=== PATIENT | male | born 1980 | race Two or more races ===

== ENCOUNTER 2021-06-30 13:01 | Inpatient (IN) | payer MEDICAID, OTHER ==
[~2021-06-30] VITALS: Ht 180.3 cm; Wt 103.9 kg
[~2021-06-30 13:01] MED LIST: NOCURR; OLAN7.5T22 PO
[2021-06-30] MEDS ORDERED: OLANZapine 5 MG RAPDIS TABLET PO PRN (15:00)
[2021-06-30] MEDS ORDERED: LORazepam 2 MG TABLET PO PRN (15:00)
[2021-06-30 15:01] LABS: BASOPHILS % (AUTO) 0.5 % (0.0-2.0); EOSINOPHILS % (AUTO) 1.3 % (1.0-6.0); HEMOGLOBIN 15.3 g/dL (13.5-17.5); LYMPHOCYTES % (AUTO) 24.6 % (22.0-44.0); MEAN CORPUSCULAR HEMOGLOBIN 31.5 pg (26.0-34.0); MEAN CORPUSCULAR HGB CONC 35.7 G/dL (31.0-37.0); MEAN CORPUSCULAR VOLUME 88 fL (80-100); MONOCYTES # (AUTO) 0.6 K/uL (0.1-1.0); NEUTROPHILS # (AUTO) 5.3 K/uL (1.8-7.7); NEUTROPHILS % (AUTO) 65.6 % (40.0-70.0); PLATELET COUNT (AUTO) 233 K/uL (150-450); RED BLOOD CELL COUNT(AUTO) 4.86 MIL/uL (4.50-5.90); RED CELL DISTRIBUTION WIDTH 13.3 % (11.5-14.5)
[2021-06-30 15:10] LABS: ANION GAP 11 mmol/L (8-16); CARBON DIOXIDE 28 mmol/L (22-29); CHLORIDE 103 mmol/L (98-107); CREATININE 0.79 mg/dL (0.60-1.30); GLOMERULAR FILTR. RATE CALC > 60 mL/min (>60); GLUCOSE,RANDOM 98 mg/dL (70-110); SODIUM SERUM 142 mmol/L (136-145); UREA NITROGEN, BLOOD 15 mg/dL (7-18)
[2021-06-30 15:12] LABS: COVID AG,FIA SOURCE NASOPHARYNGEAL
[2021-06-30 15:16] LABS: ALANINE AMINOTRANSFERASE 116 U/L (12-78); ALBUMIN 4.3 g/dL (3.4-5.0); ALKALINE PHOSPHATASE 94 U/L (46-116); ASPARTATE AMINOTRANSFERASE 57 U/L (15-37); BILIRUBIN,TOTAL 0.6 mg/dL (0.1-1.0)
[2021-06-30 16:10] VITALS: BP 118/77
[2021-06-30 16:44] LABS: APPEARANCE,URINE CLEAR (CLEAR); BILIRUBIN,URINE NEGATIVE (NEGATIVE); GLUCOSE, URINE (UA) NEGATIVE (NEGATIVE); KETONES,URINE NEGATIVE (NEGATIVE); LEUKOCYTE ESTERASE ,URINE NEGATIVE (NEGATIVE); NITRATE,URINE NEGATIVE (NEGATIVE); OCCULT BLOOD,URINE NEGATIVE (NEGATIVE); PROTEIN,URINE NEGATIVE (NEGATIVE); SPECIFIC GRAVITIY, URINE 1.016 (1.003-1.030); UROBILINOGEN,URINE <=1.0 mg/dL (<=1.0)
[2021-06-30 16:50] LABS: AMPHET/METH SCREEN,URINE NEGATIVE (NEGATIVE); BARBITURATE SCREEN, URINE NEGATIVE (NEGATIVE); BENZODIAZEPINES SCREEN,URINE NEGATIVE (NEGATIVE); CANNABINOID SCREEN,URINE NEGATIVE (NEGATIVE); COCAINE SCREEN,URINE NEGATIVE (NEGATIVE); METHADONE SCREEN, URINE NEGATIVE (NEGATIVE); OPIATE SCREEN,URINE NEGATIVE (NEGATIVE)
[2021-06-30 16:53] LABS: PHENCYCLIDINE SCREEN,URINE NEGATIVE (NEGATIVE)
[2021-06-30 21:32] VITALS: BP 142/92
[2021-07-01 00:50] VITALS: BP 137/86
[2021-07-01 01:00] VITALS: BP 137/80
[2021-07-01 07:21] LABS: CHOL/HDL RATIO 5.1 (4.2-7.3); FREE T4 (FREE THYROXINE) 0.86 ng/dL (0.76-1.46); THYROID STIMULATING HORMONE 1.63 uIU/mL (0.36-3.74)
[2021-07-01 07:45] LABS: HEMOGLOBIN A1C 5.4 % (3.8-5.6)
[2021-07-01] MEDS ORDERED: CloNIDine HCL 0.1 MG TABLET PO PRN (08:30)
[2021-07-01] MEDS ORDERED: LOPERAMIDE HCL 2 MG CAPSULE PO PRN (08:30)
[2021-07-01] MEDS ORDERED: OMEPRAZOLE 20 MG CAPSULE PO PRN (08:30)
[2021-07-01] MEDS ORDERED: MAG HYDROX/AL HYDROX/SIMETH ES 30 ML SUSPENSION UDCUP PO PRN (08:30)
[2021-07-01] MEDS ORDERED: ALBUTEROL SULFATE HFA 90 MCG/PUFF 8 GM INHALER IH PRN (08:30)
[2021-07-01] MEDS ORDERED: MAGNESIUM HYDROXIDE SUSPENSION 30 ML UDCUP PO PRN (08:30)
[2021-07-01] MEDS ORDERED: PETROLATUM,WHITE 28 GM JELLY TP PRN (08:30)
[2021-07-01] MEDS ORDERED: ONDANSETRON HCL 4 MG TABLET PO PRN (08:30)
[2021-07-01] MEDS ORDERED: BENZOCAINE/MENTHOL LOZENGE PO PRN (08:30)
[2021-07-01] MEDS ORDERED: DOCUSATE SODIUM 100 MG CAPSULE PO PRN (08:30)
[2021-07-01] MEDS ORDERED: BACITRACIN 28 GM OINTMENT TP PRN (08:30)
[2021-07-01 09:07] VITALS: BP 126/70
[2021-07-01 16:12] VITALS: BP 123/72
[2021-07-02 01:39] VITALS: BP 121/69
[2021-07-02 08:50] VITALS: BP 119/60
[2021-07-02] MEDS: RisperiDONE 1 MG TABLET PO SCH (12:11)
[2021-07-02] MEDS: IBUPROFEN 600 MG TABLET PO PRN (12:12)
[2021-07-02 16:04] VITALS: BP 112/65
[2021-07-03 00:59] VITALS: BP 119/65
[2021-07-03 08:02] VITALS: BP 123/82
[2021-07-03] MEDS: RisperiDONE 1 MG TABLET PO SCH (08:45)
[2021-07-03 16:05] VITALS: BP 113/62
[2021-07-03] MEDS: IBUPROFEN 600 MG TABLET PO PRN (18:38)
[2021-07-04 05:46] VITALS: BP 136/70
[2021-07-04 08:05] VITALS: BP 112/68
[2021-07-04] MEDS: RisperiDONE 1 MG TABLET PO SCH (08:31)
[2021-07-04] MEDS: IBUPROFEN 600 MG TABLET PO PRN ×2 (12:25→19:59)
[2021-07-04 16:06] VITALS: BP 133/83
[2021-07-04] MEDS: ZOLPIDEM TARTRATE 10 MG TABLET PO PRN (23:07)
[2021-07-05 06:02] VITALS: BP 107/63
[2021-07-05 08:39] VITALS: BP 131/67
[2021-07-05] MEDS: RisperiDONE 1 MG TABLET PO SCH (09:14)
[2021-07-05] MEDS: IBUPROFEN 600 MG TABLET PO PRN (12:10)
[2021-07-05 12:56] LABS: GLUCOMETER DEV NAME(LOC) POC.BV
[2021-07-05 16:27] VITALS: BP 126/79
[2021-07-06 02:05] VITALS: BP 126/78
[2021-07-06] MEDS: IBUPROFEN 600 MG TABLET PO PRN ×2 (02:18→19:04)
[2021-07-06] MEDS: ZOLPIDEM TARTRATE 10 MG TABLET PO PRN (02:18)
[2021-07-06] MEDS: RisperiDONE 1 MG TABLET PO SCH (08:41)
[2021-07-06 09:06] VITALS: BP 110/68
[2021-07-06 18:15] VITALS: BP 124/71
[2021-07-07 00:17] VITALS: BP 120/68
[2021-07-07] MEDS: ZOLPIDEM TARTRATE 10 MG TABLET PO PRN (00:24)
[2021-07-07 00:51] VITALS: BP 120/16
[2021-07-07 08:21] VITALS: BP 115/67
[2021-07-07] MEDS: RisperiDONE 1 MG TABLET PO SCH (09:41)
[2021-07-07 16:11] VITALS: BP 128/78
[2021-07-08 01:21] VITALS: BP 115/67
[2021-07-08 08:11] VITALS: BP 118/56
[2021-07-08] MEDS: OMEGA-3/DHA/EPA/FISH OIL 1,000 MG CAPSULE PO SCH (09:00)
[2021-07-08] MEDS: RisperiDONE 1 MG TABLET PO SCH (09:19)
[2021-07-08 16:22] VITALS: BP 134/80
[2021-07-08] MEDS: IBUPROFEN 600 MG TABLET PO PRN (17:20)
[2021-07-09 05:48] VITALS: BP 116/81
[2021-07-09 08:05] VITALS: BP 123/67
[2021-07-09] MEDS: RisperiDONE 1 MG TABLET PO SCH (08:15)
[2021-07-09] MEDS: OMEGA-3/DHA/EPA/FISH OIL 1,000 MG CAPSULE PO SCH (08:17)
[2021-07-09 16:11] VITALS: BP 125/78
[2021-07-10] MEDS: RisperiDONE 1 MG TABLET PO SCH (08:01)
[2021-07-10] MEDS: OMEGA-3/DHA/EPA/FISH OIL 1,000 MG CAPSULE PO SCH (08:02)
[2021-07-10 08:11] VITALS: BP 123/78
[2021-07-10] MEDS: IBUPROFEN 600 MG TABLET PO PRN (13:04)
[2021-07-10 16:02] VITALS: BP 129/65
[2021-07-11 00:29] VITALS: BP 121/68
[2021-07-11 08:27] VITALS: BP 131/77
[2021-07-11] MEDS: OMEGA-3/DHA/EPA/FISH OIL 1,000 MG CAPSULE PO SCH (08:31)
[2021-07-11] MEDS: RisperiDONE 1 MG TABLET PO SCH (08:31)
[2021-07-11 16:06] VITALS: BP 129/80
[2021-07-11] MEDS: IBUPROFEN 600 MG TABLET PO PRN (16:09)
[2021-07-12 00:44] VITALS: BP 125/71
[2021-07-12 08:06] VITALS: BP 113/73
[2021-07-12] MEDS: OMEGA-3/DHA/EPA/FISH OIL 1,000 MG CAPSULE PO SCH ×2 (08:40→08:45)
[2021-07-12] MEDS: RisperiDONE 1 MG TABLET PO SCH ×2 (08:40→20:36)
[2021-07-12 10:01] LABS: GLUCOMETER DEV NAME(LOC) POC.BV
[2021-07-12 16:18] VITALS: BP 138/81
[2021-07-13 00:13] VITALS: BP 126/84
[2021-07-13 02:53] VITALS: BP 120/86
[2021-07-13] MEDS: IBUPROFEN 600 MG TABLET PO PRN (02:57)
[2021-07-13 08:14] VITALS: BP 104/63
[2021-07-13] MEDS: OMEGA-3/DHA/EPA/FISH OIL 1,000 MG CAPSULE PO SCH (09:00)
[2021-07-13 16:17] VITALS: BP 126/86
[2021-07-13] MEDS: RisperiDONE 1 MG TABLET PO SCH (20:26)
[2021-07-14 00:28] VITALS: BP 120/78
[2021-07-14] MEDS ORDERED: RISP1TAB98 PO (00:32)
[2021-07-14 08:03] VITALS: BP 122/76
[2021-07-14] MEDS: OMEGA-3/DHA/EPA/FISH OIL 1,000 MG CAPSULE PO SCH (08:07)
[2021-07-14] MEDS: IBUPROFEN 600 MG TABLET PO PRN (12:29)
== END 2021-07-14 13:10 | disposition home or self-care (01) | DRG 750 ==
LOC: EMS 13:01 → 3EX 16:34 → UNDOADMIN 16:34 → B2S 17:01
PROVIDERS: ADMIT Psychiatry & Neurology Psychiatry; ATTEND Psychiatry & Neurology Psychiatry
DX: F20.9 Schizophrenia, unspecified (principal); F17.200 Nicotine dependence, unspecified, uncomplicated; F41.9 Anxiety disorder, unspecified; G47.00 Insomnia, unspecified; K59.00 Constipation, unspecified; Z20.822 Contact with and (suspected) exposure to COVID-19; R74.01 Elevation of levels of liver transaminase levels; Z71.6 Tobacco abuse counseling; Z72.89 Other problems related to lifestyle; Z88.6 Allergy status to analgesic agent; Z88.2 Allergy status to sulfonamides
CPT/HCPCS: 80053; 80061; 81003; 83036; 84439; 84443; 85025; 99285; G0480

== ENCOUNTER 2021-12-03 11:51 | Emergency (ER) | payer MEDICAID, OTHER ==
[~2021-12-03] VITALS: Ht 188 cm; Wt 100.0 kg
[~2021-12-03 11:51] MED LIST changes: -NOCURR; -OLAN7.5T22 PO; +RISP1TAB98 PO
[2021-12-03] MEDS ORDERED: PALI117D IM (11:57)
[2021-12-03] MEDS ORDERED: ESCI-8 PO (11:57)
[2021-12-03] MEDS ORDERED: ONDANSETRON HCL 4 MG TABLET PO ONE (13:15)
[2021-12-03] MEDS ORDERED: MECLIZINE HCL 25 MG TABLET PO ONE ×2 (13:15→14:30)
[2021-12-03 13:57] LABS: BASOPHILS % (AUTO) 0.7 % (0.0-2.0); EOSINOPHILS % (AUTO) 0.7 % (1.0-6.0); HEMATOCRIT 44.4 % (41-53); HEMOGLOBIN 15.5 g/dL (13.5-17.5); LYMPHOCYTES # (AUTO) 1.1 K/uL (1.0-4.8); LYMPHOCYTES % (AUTO) 18.6 % (22.0-44.0); MEAN CORPUSCULAR HEMOGLOBIN 32.1 pg (26.0-34.0); MEAN CORPUSCULAR HGB CONC 34.9 G/dL (31.0-37.0); MEAN CORPUSCULAR VOLUME 92 fL (80-100); MONOCYTES # (AUTO) 0.4 K/uL (0.1-1.0); MONOCYTES % (AUTO) 7.2 % (2.0-9.0); NEUTROPHILS # (AUTO) 4.2 K/uL (1.8-7.7); NEUTROPHILS % (AUTO) 72.8 % (40.0-70.0); PLATELET COUNT (AUTO) 192 K/uL (150-450); RED BLOOD CELL COUNT(AUTO) 4.83 MIL/uL (4.50-5.90); RED CELL DISTRIBUTION WIDTH 13.9 % (11.5-14.5)
[2021-12-03 14:03] LABS: ANION GAP 5 mmol/L (8-16); CALCIUM, TOTAL 9.6 mg/dL (8.8-10.5); CARBON DIOXIDE 29 mmol/L (22-29); CHLORIDE 103 mmol/L (98-107); CREATININE 0.85 mg/dL (0.60-1.30); GLOMERULAR FILTR. RATE CALC > 60 mL/min (>60); GLUCOSE,RANDOM 111 mg/dL (70-110); POTASSIUM 4.2 mmol/L (3.5-5.1); SODIUM SERUM 137 mmol/L (136-145); UREA NITROGEN, BLOOD 13 mg/dL (7-18)
[2021-12-03 14:08] LABS: ALANINE AMINOTRANSFERASE 230 U/L (12-78); ALBUMIN 4.4 g/dL (3.4-5.0); ALKALINE PHOSPHATASE 100 U/L (46-116); ASPARTATE AMINOTRANSFERASE 117 U/L (15-37); BILIRUBIN,TOTAL 0.7 mg/dL (0.1-1.0)
[2021-12-03] MEDS ORDERED: MECL-134 PO (14:33)
[2021-12-03 15:25] VITALS: BP 121/84
== END 2021-12-03 15:39 | disposition home or self-care (01) ==
LOC: EMS 11:54
DX: R42 Dizziness and giddiness (principal); F31.9 Bipolar disorder, unspecified; G43.909 Migraine, unspecified, not intractable, without status migrainosus; F20.9 Schizophrenia, unspecified; Z88.6 Allergy status to analgesic agent; Z88.2 Allergy status to sulfonamides
CPT/HCPCS: 99284; 80053; 85025; 36415; 93005; Q0162